=== PATIENT | male | born 1940 | race Caucasian/White ===

== ENCOUNTER 2017-02-08 09:56 | Observation (INO) | payer MEDICARE, SELFPAY ==
[2017-02-02 09:39] LABS: BASOPHILS ABSOLUTE 0.07 10/3/uL (0.0-0.16); EOSINOPHILS 4.5 %; HEMATOCRIT 43.7 % (40.0-51.0); HEMOGLOBIN 15.4 g/dL (13.6-17.8); IMMATURE GRANULOCYTES 0.3 %; IMMATURE GRANULOCYTES ABSOLUTE 0.02 10/3/uL (0.0-0.11); LYMPHOCYTES 36.2 %; LYMPHOCYTES ABSOLUTE 2.43 10/3/uL (0.67-4.30); MANUAL DIFF NO %; MEAN CORPUS HGB CONC 35.2 g/dL (32.0-36.0); MEAN CORPUSCULAR HEMOGLOB 30.3 pg (26.0-34.0); MEAN PLATELET VOLUME 9.5 fL (9.2-13.0); MONOCYTES 12.9 %; MONOCYTES ABSOLUTE 0.87 10/3/uL (0.21-1.20); NEUTROPHILS 45.1 %; NEUTROPHILS ABSOLUTE 3.03 10/3/uL (2.02-8.40); PLATELET COUNT 252 10/3/uL (150-400); RED CELL COUNT 5.08 10/6/uL (4.7-6.1); WHITE BLOOD CELLS 6.7 10/3/uL (4.5-10.5)
[2017-02-02 09:56] LABS: A/G RATIO 1.3 (0.7-1.9); ALBUMIN 4.1 G/DL (3.5-5.0); BUN (BLOOD UREA NITROGEN) 13 MG/DL (6-23); CALCIUM, SERUM 9.2 MG/DL (8.5-10.4); CHLORIDE, SERUM 105 MMOL/L (96-112); CO2 (CARBON DIOXIDE) 26 MMOL/L (24-34); CREATININE 1.21 MG/DL (0.70-1.30); GFR AFRICAN AMERICAN 67 ML/MIN (>=60); GFR NON AFRICAN AMERICAN 57 ML/MIN (>=60); GLOBULIN 3.2 G/DL (2.5-4.1); POTASSIUM, SERUM 3.7 MMOL/L (3.5-5.3); SGOT(AST) 19 U/L (5-40); SGPT(ALT) 26 U/L (5-65); SODIUM, SERUM 143 MMOL/L (135-148); TOTAL BILIRUBIN 0.2 MG/DL (0-1.2); TOTAL PROTEIN 7.3 G/DL (6.0-8.5)
[2017-02-02 09:57] LABS: ALKALINE PHOSPHATASE 131 U/L (45-117); GLUCOSE, SERUM 147 MG/DL (60-99)
--- NOTE | ~2017-02-08 | OP ---
Record Of Operation [facility] [address] [place]. [address] NAME: MEG MARTINO : 38 STATUS : DIS Celso PAT#: [id number] AGE: 76 ADM/REG DATE : 02/08/17 MR#: [id number] REPORT SERV DATE: 02/18/17 DICTATED BY: PADMA CURRIE JR. DATE: 02/12/17 REPORT STATUS : Draft TRANSCRIBED BY: MODL DATE: 02/12/17 DATE OF PROCEDURE: 02/08/2017 SURGEON: Padma Currie M.D. PROCEDURE: Laparoscopic cholecystectomy and repair of umbilical hernia. PREOPERATIVE DIAGNOSES: Cholelithiasis and umbilical hernia. POSTOPERATIVE DIAGNOSES: Cholelithiasis and umbilical hernia. ANESTHESIA: General. INDICATIONS: The patient presented with upper abdominal pain. He was found to have cholelithiasis, he also has umbilical hernia. Repair of the hernia is indicated along with cholecystectomy. FINDINGS: There was some umbilical hernia present on entrance into the abdomen, the hernia sac was excised, fascial edges were freed up and debrided, and this was closed primarily. Gallbladder was inflamed, this was removed successfully. No significant findings were encountered. DESCRIPTION OF PROCEDURE: With adequate general anesthesia, the patient was placed in supine position. The abdomen was prepped and draped sterilely. A 0.5% Marcaine was used for local infiltration of all trocar sites. An umbilical incision was made. It was deepened down through the subcutaneous tissues, the hernia sac was encountered and dissected free of surrounding tissues and excised. The peritoneal cavity was entered. Initially the subcutaneous flaps were raised out to healthy fascia. Nonviable fascia was excised and this was partially closed with sutures of 0 Novafil. The balloon tipped trocar was introduced. In the absence of low CO2 an additional trocar was placed in the epigastric with a 10/11 and two 5s in the subcostal. The gallbladder was identified, grasped, and retracted in a cephalad manner. The cystic duct and artery were identified, doubly clipped and divided. The gallbladder was removed from its bed with electrocautery. It was extracted through the umbilical site and submitted to Pathology. Bleeding was controlled within the bed with electrocautery, also with Surgifoam. Then, the trocar was removed. The remainder of the umbilical hernia was then closed with a running [id number] 0 Novafil, subcutaneous Vicryl, and dermal Monocryl for all this incision and all the trocar sites. He left the operating room in satisfactory condition. ESTIMATED BLOOD LOSS: 30 mL. ENRIKE/ZA Padma Currie Record Of [address] [address] NAME: MEG MARTINO : 38 STATUS : DIS Celso PAT#: [id number] AGE: 76 ADM/REG DATE : 02/08/17 MR#: [id number] REPORT SERV DATE: 02/18/17 DICTATED BY: PADMA CURRIE JR. DATE: 02/12/17 REPORT STATUS : Draft TRANSCRIBED BY: ZA DATE: 02/12/17 Jesu Schuler / [id number] CC: Jesu Buckley Jr., M.D.
[~2017-02-08 09:56] MED LIST: ACCUNEB INH; ALBUTEROL5 INH; ALEVE220 MG PO; ARICEPT10 PO; ARICEPT23 MG PO; ASAB PO; B121000P IM; BREO ELLIPTA INH; BROVANA15 MCG INH; C5 PO; CARDCD240 PO; CARDIZEM LA120 MG PO; CARTIA XT240 MG/24 PO; CENTRUM TAB1 TAB PO; CLARIT10 PO; CLARITIN; CLOTRIMAZOLE12 EX; COQ-1010 MG OR; CRESTOR10 PO; CRESTOR20 MG PO; DALIRESP500 MCG PO; DIABETA5 PO; DUONEB IN; DUONEB INH; FELDENE20 MG PO; FISH-EPA1000 MG PO; FOLIC ACID400 MC1 PO; FOLIC PO; FORADIL; GLUCOV5 PO; GLUCPH PO; HALF81 PO; HUMI PO; HUMULIN SC; HYDROCHLOROTHIAZIDE; INCRUSE ELLI62.5 MCG INH; INCRUSE INH; INSNOV7030 SC; ISOSORBIDE MONONITRATE 10 MG; JANTOVEN5 MG PO; K-TABS10 MEQ PO; K500 PO; KLOR-CON M2020 MEQ PO; KOMBIGLYZE XR1 EAC1 PO; L20 PO; L40 PO; LEVAQUIN750 MG PO; LIPITOR40 PO; LISINOPRIL; LOPID6 PO; LORT7 PO; LOVAZA1 GM PO; MAGNEBIND PO; MAGOX4 PO; MEDROLPAK4; MIRALAXPKT PO; MOBIC7.5 PO; MONODOX100 MG PO; MVI PO; NEXIUM40 PO; NITROII20C TOP; NITROII5C; NITROQUICK0.4 MG SL; NITROSTAT0.4 MG SL; NORV10 PO; NORV5 PO; ONGLYZA5 MG PO; PCET PO; PERCOCET 5/325MG; PERFOROM INH; PIROXICAM 20 MG PO; PLAVIX PO; POTASSIUM 20 MEQ; PREDNISONE10 M1 OR; PROTONIX PO; PROVENTSOL INH; PULMICORT180 MCG INH; PULRESP.25 INH; PULRESP.5 INH; SINGULAIR1 PO; SPIRIVA INH; STERAPDS12; TRIAMCINOLON0.13 TOP; VICODIN ES1 TAB PO; VIMPAT100 MG PO; VISINE0.05 % OPH; VITD PO; X5 PO; XANAX1 MG PO; ZESTORETIC1 TA1 PO; ZITH250 PO; ZOVI800 PO; ZYRTEC ALLGY10 MG PO
[2017-02-08 11:06] LABS: INTERNATIONAL NORMAL RATI 1.1 UNITS (-); PROTIME (NOT ORD) 14.3 SEC (12.0-14.5)
[2017-02-09 05:53] LABS: INTERNATIONAL NORMAL RATI 1.1 UNITS (-); PROTIME (NOT ORD) 14.3 SEC (12.0-14.5)
[2017-02-09] MEDS ORDERED: ZOFRAN4 PO (09:57)
[2017-02-09] MEDS ORDERED: PCET PO (09:57)
[2017-05-24] MEDS ORDERED: CARDCD240 PO (09:06)
[2017-05-24] MEDS ORDERED: ARICEPT10 PO (09:07)
[2017-05-24] MEDS ORDERED: CAT1 PO (09:22)
[2017-05-24] MEDS ORDERED: DALIRESP500 MCG PO (09:24)
[2017-05-24] MEDS ORDERED: AMARYL4 PO (09:24)
== END 2017-02-09 12:10 | disposition home or self-care (01) ==
LOC: SDC 09:56 → 5SO 20:48
PROVIDERS: Specialist
PROC: 0FT44ZZ Resection of Gallbladder, Percutaneous Endoscopic Approach (ICD-10-PCS; principal; 2017-02-08 11:30)
PROC: 0WQF4ZZ Repair Abdominal Wall, Percutaneous Endoscopic Approach (ICD-10-PCS; 2017-02-08 11:30)
DX: K80.10 Calculus of gallbladder with chronic cholecystitis without obstruction (principal); K42.9 Umbilical hernia without obstruction or gangrene; J44.9 Chronic obstructive pulmonary disease, unspecified; E78.5 Hyperlipidemia, unspecified; E11.9 Type 2 diabetes mellitus without complications; I73.9 Peripheral vascular disease, unspecified; I50.9 Heart failure, unspecified; K21.9 Gastro-esophageal reflux disease without esophagitis; J45.909 Unspecified asthma, uncomplicated; I11.0 Hypertensive heart disease with heart failure; D64.9 Anemia, unspecified; Z86.73 Personal history of transient ischemic attack (TIA), and cerebral infarction without residual deficits; Z88.5 Allergy status to narcotic agent; Z88.8 Allergy status to other drugs, medicaments and biological substances; Z87.891 Personal history of nicotine dependence
CPT/HCPCS: 71020; 80053; 82150; 82962; 83690; 85025; 85610; 88302; 88304; 93005; 94640; A9270-GY; G0378; J0690; J1170; J1885; J2405; J2710; J3010; Q9967